=== PATIENT | female | born 1950 | race Caucasian/White ===

== ENCOUNTER 2016-07-02 13:31 | Emergency (ER) | payer OTHER ==
[~2016-07-02] VITALS: Ht 162.6 cm; Wt 75.0 kg
[~2016-07-02 13:31] MED LIST: ACT15 PO; ASPI-956 PO; ATEN25TA7 PO; EZET1TAB15 PO; IBUP-1149 PO; INSULIN DETEMIR SQ; MTF850T PO; OXYC-176 PO; [UNRECOGNIZED DRUG - CODE] PO; fish oil PO; levothyroxine PO; losartan PO
[2016-07-02 13:34] VITALS: BP 157/106; PULSE 91; RESP 16; O2SAT 99
[2016-07-02] MEDS ORDERED: INSU100V4 SUBQ (13:39)
--- NOTE | 2016-07-02 14:13 | DRSVH ---
PROCEDURE: X-RAY RIGHT ANKLE, MINIMUM THREE VIEWS ([id number]) INDICATIONS: swollen/painful TECHNIQUE: 3 views of the ankle were acquired. COMPARISON: [facility], CR, ANKLE MIN 3VW (LT), 11/23/2011, 13:54. [facility], CR, SURG FLUORO C-ARM > 1 HR, 11/23/2011, 12:51. [facility], CR, SURG FLOURO EA 30 MIN , 11/23/2011, 12:51. [facility], , ANKLE MIN 3VW (LT), 11/22/2011, 10:51. FINDINGS: Bones: There is a minimally displaced oblique fracture of the distal fibular shaft, which probably ex tends into the joint space with mild lateral displacement of the distal fracture fragment by approxim ately 1-2 mm. The ankle mortise is well-maintained. No additional fractures are present. There are mild degenerative changes noted involving the talonavicular joint. There may be a small enthesophyt e at the Achilles tendon insertion on the calcaneus. Soft tissues: Mild soft tissue swelling of the ankle is present with an associated small to moderate ankle effusion. IMPRESSION: Nondisplaced oblique fracture of the distal fibula shaft with intra-articular extension. Dictated by: Juan Carlos Lomeli M.D. on 07/02/2016 at 13:07 Approved by: Juan Carlos Lomeli M.D. on 07/02/2016 at 13:12
--- NOTE | 2016-07-02 14:23 | ED.REPORT ---
HPI-General Illness Date of Service Jul 02, 2016 ED Provider: Jassi Marquez PA-C Luisa is a 65-year-old female with a history of diabetic neuropathy who presents with a chief complaint of a head injury. She states that she was knocked over by a Myron, which caused her to strike her head against the wooden roost. She also complains of right ankle pain, and has been unable to bear weight on the ankle. She admits some numbness in the foot, which she states is at baseline. Denies losing consciousness, headache, vomiting, seizure , use of blood thinners, bleeding/clotting disorders. Denies neck pain or numbness/tingling in her upper extremities. She is unsure of her tetanus status. Nursing Notes Stated Complaint: FELL/HEAD AND ANKLE HURT Chief Complaint: Head, Face, Neck Trauma Nursing Notes Reviewed: Yes Allergies: Coded Allergies: Penicillins (Verified Allergy, Severe, hives, facial swelling, 07/02/16) Scheduled Hydrocodone-Acetaminophen 5-325 mg (Hydrocodone-Acetaminophen 5-325 mg) 1 Each Tablet 1-2 TABLET PO QID Insulin Detemir (Levemir U100 Insulin Vial) 100 Unit/1 Ml Vial 1 UNIT SUBQ QPM Sulfamethoxazole/Trimeth 800-160 mg (Bactrim DS) 1 Each Tablet 1 TABLET PO BID General Time Seen by MD: 13:45 Chief Complaint Laceration Past Medical History Past Medical History Reports: Diabetes mellitus Review of Systems Negative unless stated otherwise in history of present illness Physical Exam General: Well appearing, well developed, well nourished, no acute distress. Head: 3 cm laceration on occipital scalp with associated tenderness. No deformity. Right knee: Right ankle: Lateral malleolar tenderness. DP pulse 2+, PT pulse not appreciated bilaterally. Capillary refill less than 5 seconds. Sensation reduced but equal bilaterally. Motor intact. Eyes: No scleral icterus or injection. No discharge. Vision grossly intact. ENT: Voice clear, hearing grossly intact. Respiratory: No respiratory distress, no increased work of breathing. Speaks in complete sentences. Skin: Warm and dry. Neurological: Grossly nonfocal. Psychological: alert and oriented. Speech appropriate, linear and logical. Behavior appropriate. Vital Signs Vital Signs Date Time Temp Pulse Resp B/P Pulse Ox O2 Delivery O2 Flow Rate FiO2 07/02/16 13:34 36.7 91 16 157/106 99 Room Air Initial VS: Reviewed, Vital signs normal Procedures Laceration Management Consent / Setup / Site Prep: Informed consent provided, Consent from patient , Hand hygiene observed Location of Wound: Occipital scalp Wound Length: 4 cm Local Anesthesia: Lidocaine w epi 1% Wound Preparation: Normal saline Debridement: Minimal Irrigation: Copious Foreign Body Explore / Removal: Explored for foreign body Repair Skin: Mary # Sutures - Skin: 10 Closure Layers: 1 Post-Procedure / Complications: Antibiotic oint applied, Dressing applied, No complications, Condition improved, Tolerated procedure well, Patient stable Splint Application - Fx Mgt Procedure Performed by: Allied health pract, Ocular Care Technologist Precise Anatomic Location: Right leg posterior and stirrup splint Type of Immobilization: Ortho-glass, Posterior short leg, Sugar tong Post-Procedure / Complications: Cap refill normal, Post splint vascular nl, Condition improved, Tolerated procedure well, Patient stable Re-Eval/Medical Decision Med Decision/Clinical Course 65-year-old female with a history of diabetes presents with head injury and ankle injury. She states she was knocked over by a Myron and struck her head. No red flag history or physical for intracranial or neck injury. She does have a 4 cm laceration on her occipital scalp. Right ankle pain notable for lateral malleolus tenderness. X-rays revealed a transverse nondisplaced closed right fibula fracture. I discussed this case with Dr. Kern and treated according to his recommendations with a posterior leg and stirrup splint. Advised orthopedic follow-up in one week. Patient's significant other brings crutches from home. Laceration was irrigated, stapled, dressed with antibiotic ointment and gauze. Prescribed prophylactic antibiotics and consideration for the patient's diabetes as well as her description of a very dirty environment in which the injury occurred. Bactrim was chosen rather and Keflex due to her penicillin allergy. Discussed primary care, orthopedic follow-up indications. Provided emergency return precautions. Write prescriptions for antibiotics and pain medication. Patient stable discharge to home. Patient understands and agrees with the plan. Consultation : Referral / Consult Name: Juliocesar Kern DO Consulted With: Orthopedic Requested Call at: 15:07 Call Returned at: 15:07 Diesel Bus Mechanic: Will see in office Note: Dr. Andrew would prefer a posterior leg splint with a stirrup, but states that a walking boot, nonweightbearing would be acceptable. He would like to see her in clinic in about one week. Discharge & Departure Primary Impression: Right fibular fracture Encounter type: initial encounter Fibula location: distal Fracture type: closed Fracture morphology: other fracture Qualified Code: S82.831A - Other fracture of upper and lower end of right fibula, initial encounter for closed fracture Additional Impression: Scalp laceration Encounter type: initial encounter Qualified Code: S01.01XA - Laceration without foreign body of scalp, initial encounter Disposition: Home Discharge Condition All VS Reviewed: Yes Condition: Stable Patient Instructions: Crutch Instructions (ED), Splint Care (DC), Suture Care ( ED) Additional Instructions: Evaluation in the emergency department following a fall. X-rays reveal the tube broke a right fibula. There is also a laceration on her scalp. History and physical are reassuring that there is unlikely to be an intracranial injury or neck injury. Ligaments stable and safe to be discharged home. Regarding to your ankle: We have splinted it according to the orthopedic surgeon 's recommendations. I will give you his contact information. Please contact his office tomorrow to arrange follow-up in about a week. Keep the limb elevated as much as possible to reduce swelling and to not bear weight on it. Please return to emergency department if you lose feeling in her toes, they become very cold or numb. Also return if you notice increasing pain in your leg. Regarding your scalp: We have cleaned, closed the wound with mary, applied antibiotic ointment and dressed with gauze. Please keep this dressing clean and dry for next 24 hours. After that you can wash gently with soap and water, then reapply antibiotic ointment and gauze. I will write a prescription for Bactrim DS. Please take this twice a day for the next 7 days to prevent infection in your scalp. A little bit of swelling and clear or pink drainage is normal. However fever, increasing pain, redness, swelling, or the appearance of pus indicate infection. Please return to the emergency Department if you notice these symptoms. I will provide you with a referral for primary care follow-up. Please contact them to arrange to have your mary removed in about 10 days, or you can return to the emergency department. The pain is best treated with 600 mg of ibuprofen (Advil, Motrin) every 6 hours , or 1000 mg of acetaminophen (Tylenol) every 6 hours. These drugs can be taken at the same time for more severe pain. If you need more pain control, I will write a prescription for a small amount of Percocet, which you can substitute for the Tylenol. Do not take them together. Please do not drive or drink alcohol within 4 hours of taking Percocet. Referrals: Joshua Marcos MD, Michael J DO EDSupervising Provider for APC: David Palmer DO copies to: Juliocesar Kern Seth PA-C Jul 02, 2016 14:23
[2016-07-02] MEDS ORDERED: TdaP Vaccine 0.5 mL Inj IM ONE (15:30)
[2016-07-02] MEDS ORDERED: SULF1TAB7 PO (16:00)
[2016-07-02] MEDS ORDERED: HYDR-4003 PO (16:00)
== END 2016-07-02 16:10 | disposition home or self-care (01) ==
LOC: SED 13:31
DX: S82.831A Other fracture of upper and lower end of right fibula, initial encounter for closed fracture (principal); S01.01XA Laceration without foreign body of scalp, initial encounter; W22.8XXA Striking against or struck by other objects, initial encounter; Y93.89 Activity, other specified; Y92.9 Unspecified place or not applicable; Y99.8 Other external cause status; E11.9 Type 2 diabetes mellitus without complications; Z79.4 Long term (current) use of insulin; Z88.0 Allergy status to penicillin; Z23 Encounter for immunization

== ENCOUNTER 2016-08-13 14:18 | Emergency (ER) | payer OTHER ==
[~2016-08-13] VITALS: Ht 162.6 cm; Wt 72.7 kg
[~2016-08-13 14:18] MED LIST changes: -ACT15 PO; -ASPI-956 PO; -ATEN25TA7 PO; -EZET1TAB15 PO; +HYDR-4003 PO; -IBUP-1149 PO; +INSU100V4 SUBQ; -INSULIN DETEMIR SQ; -MTF850T PO; -OXYC-176 PO; +SULF1TAB7 PO; -[UNRECOGNIZED DRUG - CODE] PO; -fish oil PO; -levothyroxine PO; -losartan PO
[2016-08-13 14:31] VITALS: BP 137/95; PULSE 92; RESP 16; O2SAT 97
--- NOTE | 2016-08-13 15:13 | DRSVH ---
PROCEDURE: X-RAY RIGHT WRIST COMPLETE, MINIMUM THREE VIEWS ([id number]) INDICATIONS: pain, fall TECHNIQUE: 4 views of the wrist were acquired. COMPARISON: None. FINDINGS: Bones: Mental mineralization is diffusely decreased. No displaced fractures or dislocations are zulma ntified. There are moderate degenerative changes of the distal radial ulnar joint and the basal join ts of the thumb. No suspicious osseous lesions are evident. Soft tissues: No suspicious soft tissue calcifications. IMPRESSION: No acute fractures of the right wrist are evident. Dictated by: Juan Carlos Lomeli M.D. on 08/13/2016 at 14:10 Approved by: Juan Carlos Lomeli M.D. on 08/13/2016 at 14:11
--- NOTE | 2016-08-13 15:34 | ED.REPORT ---
HPI-Extremity Problem Upper Date of Service August 13, 2016 ED Provider: Jassi Marquez PA-C Luisa is a 65-year-old female with a history of diabetes presenting with a chief complaint of right arm pain. Patient was pushing her knee-scooter when she struck a crack in the pavement and tipped over to her left side. She fell on her outstretched right hand resulting in right forearm pain. Complains of elevated pain with supination as well as wrist flexion and extension. Denies numbness/tingling or weakness. She is right-handed. Nursing Notes Stated Complaint: RIGHT ARM INJURY Chief Complaint: Extremity Trauma Nursing Notes Reviewed: Yes Allergies: Coded Allergies: Penicillins (Verified Allergy, Severe, hives, facial swelling, 07/02/16) Scheduled Hydrocodone-Acetaminophen 5-325 mg (Hydrocodone-Acetaminophen 5-325 mg) 1 Each Tablet 1-2 TABLET PO QID Insulin Detemir (Levemir U100 Insulin Vial) 100 Unit/1 Ml Vial 1 UNIT SUBQ QPM Sulfamethoxazole/Trimeth 800-160 mg (Bactrim DS) 1 Each Tablet 1 TABLET PO BID General Time Seen by MD: 14:58 Chief Complaint Forearm injury right Past Medical History Past Medical History Reports: Diabetes mellitus Review of Systems Review of Systems Note: Negative unless stated otherwise in history of present illness Physical Exam General: Well appearing, well developed, well nourished, no acute distress. Right elbow: Normal to inspection, nontender, full range of motion. Right wrist: Normal to inspection without bruising, redness, swelling. Tender over distal radius. Radial pulse 2+. Mildly Reduced range of motion in flexion and extension Right hand: Normal to inspection, nontender, full range of motion MCP, PIP and DIP joints. Nontender over anatomical snuffbox and with axial loading of the first metacarpal. Head: Atraumatic, normocephalic. Eyes: No scleral icterus or injection. No discharge. Vision grossly intact. ENT: Voice clear, hearing grossly intact. Respiratory: No respiratory distress, no increased work of breathing. Speaks in complete sentences. Skin: Warm and dry. Neurological: Grossly nonfocal. Psychological: alert and oriented. Speech appropriate, linear and logical. Behavior appropriate. Initial Vital Signs Vital Signs (First) Date Time Temp Pulse Resp B/P Pulse Ox O2 Delivery O2 Flow Rate FiO2 08/13/16 14:31 37.0 92 16 137/95 97 Room Air Initial VS: Vital signs abnormal (elevated blood pressure) Interpretation & Diagnostics X-Ray Interpretation Xray Interpretation: PROCEDURE: X-RAY RIGHT WRIST COMPLETE, MINIMUM THREE VIEWS ([id number]) INDICATIONS: pain, fall IMPRESSION: No acute fractures of the right wrist are evident. Interpretation / Wet Read by: Interpret - Radiologist Re-Eval/Medical Decision Med Decision/Clinical Course 65-year-old female with a history of diabetes presenting for evaluation for right wrist pain after a fall on outstretched hand. Pain with wrist flexion, extension, supination. Normal to inspection. Tenderness over distal radius. Negative snuffbox tenderness. Neurovascularly intact. X-ray negative. This point I am reassured there is unlikely to be a fracture, but I cannot rule out an occult fracture of the distal radius. I am not concerned about a scaphoid fracture. This patient has follow-up previously established for a leg injury with orthopedics on . Advised [id number] analgesia, follow-up with primary care or orthopedics if symptoms are persistent, for emergency return precautions. Patient verbalizes understanding of and consent to the plan Discharge & Departure Impression: Primary Impression: Right wrist pain Disposition: Home Discharge Condition All VS Reviewed: Yes Condition: Stable Additional Instructions: Evaluation for right wrist pain in the emergency department included history, physical examination and x-rays. While U clearly have tenderness and limited range of motion on physical examination, x-rays reveal no fracture. This is reassuring, however it is possible that you have a fracture that does not show up on x-ray. If you find that you still have pain on , discuss this with your orthopedic surgeon at the follow-up appointment for your ankle. Please contact them today to let them know this may be an issue. I believe you are stable and safe to be discharged, and I do not see an indication for placing a splint at this point. The pain is best treated with 400 mg of ibuprofen (Advil, Motrin) every 6 hours , or 1000 mg of acetaminophen (Tylenol) every 6 hours. These drugs can be taken at the same time for more severe pain. Follow-up with her primary care provider or orthopedic surgeon if your pain continues. Return to emergency department for any new or worsening symptoms including increasing pain, or the development of a cold/numb hand. Referrals: Picco,Isaias DO EDSupervising Provider for APC: Kelsey Tejada MD copies to: Juliocesar Kern Seth PA-C August 13, 2016 15:34
== END 2016-08-13 15:59 | disposition home or self-care (01) ==
LOC: SED 14:18
DX: M25.531 Pain in right wrist (principal); V00.148A Other scooter (nonmotorized) accident, initial encounter; Y92.480 Sidewalk as the place of occurrence of the external cause; Y93.89 Activity, other specified; Y99.8 Other external cause status; E11.9 Type 2 diabetes mellitus without complications; I10 Essential (primary) hypertension; Z87.828 Personal history of other (healed) physical injury and trauma; Z79.4 Long term (current) use of insulin; Z88.0 Allergy status to penicillin